=== PATIENT | female | born 1995 | race Caucasian/White ===

== ENCOUNTER 2022-10-12 15:36 | Outpatient (CLI) | payer OTHER, MEDICAID, SELFPAY ==
[2022-10-12] VITALS (7 sets, daily range): BP systolic 131–149; BP diastolic 87–104; PULSE 74–86; TEMP 37.4; BMI 42.2
[2022-10-12 16:37] LABS: Hematocrit 32.9 % (37-47); Hemoglobin 10.4 g/dL (12.0-15.0); Mean Corp Hgb Conc 31.6 g/dL (32-36); Mean Corpuscular Hgb 26.1 pg (27.0-32.0); Mean Corpuscular Volume 82.5 fL (81-99); Mean Platelet Vol. 11.2 fl (6.2-12.0); Platelet Count 264 K/mm3 (150-450); RBC Distribution Width SD 41.5 fl (35.1-43.9); Red Blood Count 3.99 M/mm3 (4.2-5.4); White Blood Count 12.5 K/mm3 (4.4-11.0)
[2022-10-12 17:27] LABS: AST(SGOT) 9 U/L (15-37); Alanine Aminotransfer ALT/SGPT 13 U/L (13-56); Creatinine, Serum 0.68 mg/dL (0.55-1.02); EST Glomerular Filtration Rate 111 mL/min (>60); Est Glom Filt Rate - Afr Amer 134 mL/min (>60); Estimated Creatinine Clearance 112.81 ml/min; Uric Acid 4.5 mg/dL (2.6-6.0)
[2022-10-12 17:29] LABS: Protein:Creat Ratio 433 mg/g CRE (0-200)
--- NOTE | 2022-10-14 12:52 | OB.TRI.NOTE ---
HPI - General General Date of Service: 10/12/22 Chief Complaint: elevated BPs in office HPI Narrative JAMEE GILBERT, is a 26 F @ 36.5 who presents for evaluation of elevated BPs. [facility] Medical History (Updated 10/14/22 @ 12:[address] Liz Metcalf MD) Gestational diabetes Home Medications 1 tab PO/SL DAILY 10/12/22 [History Last Taken 10/13/22 22:00] insulin NPH isoph U-100 human 16 units OTHER QHS gestational diabetes 10/12/22 [History Last Taken 10/13/22 22:00] Allergy/AdvReac Type Severity Reaction Status Date / Time No Known Allergies Allergy Verified 10/12/22 16:09 Surgical History (Updated 10/14/22 @ 10:31 by Farideh Gomes) History of surgery Social History Smoking Status: Light Smoker (<10/day) History Elective abortions Hx Para 0 Spontaneous abortions Hx # Term Pregnancies Ectopic pregnancies Hx # Pregnancies Multiple births # of living children NST FHR Rate Baby A Baseline: 140s Variability:: Moderate Accelerations:: 15 x 15 Decelerations:: None NST Reactive:: Yes FHR Category:: Category I Uterine Activity:: irregular Assessment & Plan (1) Breech presentation: (2) Gestational diabetes requiring insulin: (3) Pre-eclampsia affecting , antepartum: PLAN: Plan @ 36.5 weeks- Pre E- w/o severe features, GDMA2, breech 1) stable today- plan for dc home- will follow up in office tomorrow for CS schedule at 37 weeks 2) PRE LABS reviewed - elevated Prot/creat ratio 3) VS reviewed with nursing- stable for dc home no severe range bps.
== END 2022-10-12 18:00 | disposition home or self-care (01) ==
LOC: WPOUT 15:51 → WP 15:58
PROVIDERS: Visit Provider Obstetrics & Gynecology
DX: O24.414 Gestational diabetes mellitus in pregnancy, insulin controlled (principal); O99.333 Smoking (tobacco) complicating pregnancy, third trimester; O32.1XX0 Maternal care for breech presentation, not applicable or unspecified; F17.200 Nicotine dependence, unspecified, uncomplicated; Z3A.36 36 weeks gestation of pregnancy
CPT/HCPCS: 36415; 59025; 59050; 82565; 82570; 84156; 84450; 84460; 84550; 85027; 99221; G0378

== ENCOUNTER 2022-10-14 09:30 | Inpatient (IN) | payer OTHER, MEDICAID, SELFPAY ==
[2022-10-14] VITALS (20 sets, daily range): BP systolic 117–151; BP diastolic 76–105; PULSE 62–84; RESP 16–17; TEMP 36.1–36.7; O2SAT 95–100; BMI 41.8
[2022-10-14] MEDS: Lactated Ringers 1,000 ML 999 ML IV (10:00)
[2022-10-14 10:33] LABS: Absolute Lymphocyte Count 2.21 X10^3/uL (0.83-4.51); Absolute Neutrophil Count 7.8 X10^3/uL (2.0-7.7); Basophil# 0.05 X10^3/uL; Basophil% 0.4 % (0-1); Eosinophil# 0.15 X10^3/uL; Eosinophils% 1.3 % (0-5); Hematocrit 33.9 % (37-47); Hemoglobin 10.9 g/dL (12.0-15.0); Lymphocyte # 2.21 X10^3/ul (0.83-4.51); Lymphocyte % 19.7 % (19-41); Mean Corp Hgb Conc 32.2 g/dL (32-36); Mean Corpuscular Hgb 26.2 pg (27.0-32.0); Mean Corpuscular Volume 81.5 fL (81-99); Mean Platelet Vol. 11.2 fl (6.2-12.0); Monocyte% 7.1 % (0-10); NRBC Flagged by Analyzer 0 % (0-5); Neutrophil # 7.84 X10^3/uL (2.7-7.7); Neutrophil % 70.1 % (47-70); Platelet Count 274 K/mm3 (150-450); RBC Distribution Width CV 14.2 % (11.6-14.6); RBC Distribution Width SD 41.5 fl (35.1-43.9); Red Blood Count 4.16 M/mm3 (4.2-5.4); White Blood Count 11.2 K/mm3 (4.4-11.0)
[2022-10-14 10:47] LABS: Amphetamine Urine VISTA NEGATIVE (<1000 ng/mL); Barbiturate Urine VISTA NEGATIVE (< 200 ng/mL); Benzodiazepine Urine VISTA NEGATIVE (< 200 ng/mL); Cocaine Urine VISTA NEGATIVE (< 300 ng/mL); Ecstacy Urine VISTA NEGATIVE (< 500 ng/mL); Methadone Urine VISTA NEGATIVE (< 300 ng/mL); PCP Urine VISTA NEGATIVE (< 25 ng/mL); THC Urine VISTA POSITIVE (< 50 ng/mL); Vista UDS pH Range 6
[2022-10-14] MEDS: Acetaminophen 500 MG Tablet 1000 MG PO ×3 (10:47→23:46)
[2022-10-14 11:11] LABS: Bedside Glucose 68 mg/dL (74-106)
[2022-10-14] MEDS: Lactated Ringers 1,000 ML 150 ML IV (11:15)
[2022-10-14] MEDS: Sodium Citrate/Citric Acid 30 ML UDC PO (11:40)
--- NOTE | 2022-10-14 11:40 | PCM.HP.OB ---
HPI - General General Date of Admission: 10/14/22 HPI Narrative JAMEE GILBERT, is a 26 F who presents for . Maternal Data Information Final HOOD: 11/04/22 Gestational age: 37 weeks [facility] Medical History (Updated 10/14/22 @ 11:[address] Obie Johnson MD) Gestational diabetes Home Medications 1 tab PO/SL DAILY 10/12/22 [History Last Taken 10/13/22 22:00] insulin NPH isoph U-100 human 16 units OTHER HS gestational diabetes 10/12/22 [History Last Taken 10/13/22 22:00] Allergy/AdvReac Type Severity Reaction Status Date / Time No Known Allergies Allergy Verified 10/12/22 16:09 Surgical History (Updated 10/14/22 @ 10:31 by Farideh Gomes) History of surgery Social History Smoking Status: Light Smoker (<10/day) History Elective abortions Hx Para 0 Spontaneous abortions Hx # Term Pregnancies Ectopic pregnancies Hx # Pregnancies Multiple births # of living children Vital Signs Vital Signs Vital Signs: 10/14/22 10:09 10/14/22 10:09 10/14/22 10:38 Temperature Temperature Source Pulse Rate 81 Respiratory Rate Blood Pressure 133/76 H Blood Pressure Mean BP Systolic 133 BP Diastolic 76 Blood Pressure Source Blood Pressure Position Blood Pressure Location Pulse Ox 98 Oxygen Delivery Method 10/14/22 10:38 10/14/22 10:49 Temperature 98.1 F Temperature Source Temporal Pulse Rate 74 82 Respiratory Rate 16 Blood Pressure 133/76 H Blood Pressure Mean 95 BP Systolic BP Diastolic Blood Pressure Source Monitor Blood Pressure Position Semi-Fowlers Blood Pressure Location Right Arm Pulse Ox 98 Oxygen Delivery Method Room Air Weight Weight: 251 lb Body Mass Index (BMI) 41.8 Physical Exam Const alert and oriented x3 Chest inspection of chest normal GI soft to palpation, non-tender and non-distended Inspection: gravid external exam normal Extremity normal to inspection and no calf tenderness Labs Labs Labs: Blood Type O NEGATIVE Antibody Screen NEGATIVE Hct 33.9 % (37-47) L Hgb 10.9 g/dL (12.0-15.0) L Assessment & Plan (1) Pre-eclampsia affecting , antepartum: COMMENT: @37 weeks (2) Gestational diabetes requiring insulin: (3) Breech presentation: PLAN: Plan Discussed R/B/A and all questions answered. Patient will proceed with primary for breech and mild preeclampsia at 37 weeks. Informed consent signed in the office. Monitor BP's & PPBS per protocol.
--- NOTE | 2022-10-14 11:56 | EX.PCM.OBRPT ---
Maternal Data Information Final HOOD: 11/04/22 Gestational age: 37 weeks Details Operative Information Date of Procedure: 10/14/22 Pre-Operative Diagnosis: (1) Breech presentation (2) Mild preeclampsia (3) Gestational diabetes requiring insulin Post-Operative Diagnosis: Same Indications for : Breech Indications Narrative: The patient was taken to the operating room where spinal anesthesia was placed & found to be adequate. She was prepped and draped in the dorsal supine position with a leftward tilt. A Pfannenstiel skin incision was made approximately 2 cm above the symphysis pubis and carried through to the underlying fascia with the scalpel. The fascia was incised incised in the midline and extended laterally with the Fuentes scissors. The rectus muscles were in the midline and the peritoneum was entered carefully and bluntly. The peritoneal incision was stretched and the bladder blade was inserted. Vesicouterine peritoneum was tented up, incised & then bladder flap created gently. The uterine incision was made in a low transverse fashion with the scalpel and extended superiorly and inferiorly with blunt dissection. The 's buttocks were grasped and the was delivered carefully via typical breech maneuvers. The 3VC cord was clamped and cut in delayed fashion. The was handed off to the waiting pediatric physical therapy assistant. The placenta was delivered with fundal massage and gentle traction in the standard fashion. The uterus was exteriorized and cleared of clots and debris. The uterine incision was closed with #1 Vicryl suture in a running locked fashion. Monocryl suture was used in an imbricating fashion. The incision was examined and was found to be hemostatic. The uterus was returned to the abdominal cavity. After irrigating Talib was placed over the uterine incision as some areas were denuded (but hemostatic). The peritoneum was closed with vicryl suture in running fashion The rectus muscle was examined and any bleeding was Bovie cauterized. The fascia was closed with PDS suture in a running standard fashion. The subcutaneous tissue was examining and any bleeding was Bovie cauterized. The subcutaneous tissue was reapproximated with interrupted sutures. The skin was closed in a subcuticular fashion. All sponge, lap, and needle counts were correct. The patient was taken to her room for recovery in a stable condition. Classification: Scheduled Procedure Type: low transverse trim operator #1: Liz Metcalf Type of Anesthesia: Spinal Antibiotic Given: Ancef 2 grams IV x1 Drain: Bardales to straight drain Estimated Blood Loss: 750ml Fluids Replaced: 1,000ml Procedure Start Time: 12:22 Procedure Stop Time: 13:00 Findings Description of Procedure: Normal maternal uterus and adnexa Presentation: Positive for Issa Breech Amniotic Membrane Rupture Type: Artificial Amniotic Fluid Description: Clear Placental Delivery Description: Expressed Placenta Disposition: [facility] Specimen(s) Sent to Pathology: None Cord Vessel Description: 3 Vessels Cord Entanglement: None A Gender: Female (Selah, weight = 3060g) (1 minute): 8 (5 minute): 9 Delayed Cord Clamping: Yes Complications Complications: None
[2022-10-14] MEDS: Ketorolac 30 MG/ML Syringe IV ×2 (13:35→19:34)
[2022-10-14 15:01] LABS: Bedside Glucose 76 mg/dL (74-106)
[2022-10-14] MEDS: NIFEdipine 30 MG Tablet PO (18:15)
[2022-10-15] VITALS (8 sets, daily range): BP systolic 126–142; BP diastolic 83–99; PULSE 79–108; RESP 16–18; TEMP 36.7–36.9; O2SAT 96–98
[2022-10-15] MEDS: Enoxaparin 40 MG/0.4 ML Syringe SC ×3 (00:33→22:41)
[2022-10-15] MEDS: Ketorolac 30 MG/ML Syringe IV ×2 (01:34→08:10)
[2022-10-15] MEDS: 0.9% Saline Lock 10 ML Syringe IV ×2 (01:35→08:11)
[2022-10-15] MEDS: Acetaminophen 500 MG Tablet 1000 MG PO ×3 (06:01→17:46)
[2022-10-15 06:12] LABS: Hematocrit 30.4 % (37-47); Hemoglobin 9.6 g/dL (12.0-15.0); Mean Corp Hgb Conc 31.6 g/dL (32-36); Mean Corpuscular Hgb 25.8 pg (27.0-32.0); Mean Corpuscular Volume 81.7 fL (81-99); Mean Platelet Vol. 10.7 fl (6.2-12.0); Platelet Count 229 K/mm3 (150-450); RBC Distribution Width CV 14.3 % (11.6-14.6); RBC Distribution Width SD 41.5 fl (35.1-43.9); Red Blood Count 3.72 M/mm3 (4.2-5.4); White Blood Count 16.8 K/mm3 (4.4-11.0)
[2022-10-15 06:25] LABS: Bedside Glucose 84 mg/dL (74-106)
[2022-10-15] MEDS: NIFEdipine 30 MG Tablet PO (08:37)
[2022-10-15] MEDS: Senna/Docusate Sodium 1 Tablet PO (08:38)
--- NOTE | 2022-10-15 09:38 | NURSING ---
Mother initiated pumping, 21mm flange inserts given, explained pumping schedule and importance of pumping 8-10x per day. mother reports is important to her and would like to be successful but is feel discouraged. Support and information given. Also discussed THC use and risks to baby if mother continued while , reports she would rather breastfeed and not use thc and understands information well.
[2022-10-15] MEDS: oxyCODONE 5 MG Tablet PO ×2 (12:30→17:47)
[2022-10-15] MEDS: Ibuprofen 600 MG Tablet PO ×2 (14:44→20:50)
--- NOTE | 2022-10-15 17:20 | CASEMGMT ---
Social Work Assessment Labor and Delivery Unit Patient Address: [address] [place] [address] Phone number: [phone] Date of Referral: 10/14/2022 Time of Referral: 1131 Referred By: Dr. Obie Johnson Date of Intervention: 10/15/2022 Time of Intervention: Approximately [id number] Reason for Referral: Maternal history of THC use History obtained from: Medical records and mother of baby (MOB) Jason Pedro; father of baby (FOB) Jorge A Smith present for part of conversation. Household composition: MOB, FOB and plan for baby girl to reside in this home as well. Has resided in this home since May 2022. Patient's parent/guardian status: HANK is a 26-year-old single female, involved with the FOB who is 28 years old for the last 9 years. During private conversation with the MOB, MOB denied any type of domestic violence or intimate partner violence. [place] baby girl, Leyda Smith (10/14/2022) is the first child for both parents. Medical History: HANK is 1, para 0 now 1 after delivering Leyda. care started at 7 weeks gestation and regular thereafter. Medical record indicates MOB with a mild preeclampsia and gestational diabetes. Noted in care record MOB indicating that it was overwhelming at times to keep track of blood sugars. delivered at 37 weeks gestation via section. weight 3060 g. Apgars 8 and 9 at 1 and 5 minutes of life respectively. Infant has been transferred into the [facility] special care nursery for issues related to hypoglycemia. Educational Status: HANK has graduated high school. No reported issues with reading, writing, or learning. Financial Status: HANK has not worked since August but last employment was at [employer]. Plans to return to work when able. FOB work is had a [employer], 12-hour shifts and full-time. Infant Supplies: MOB and FOB reported to have necessary supplies for the including bassinet, crib, car seat, clothing, diapers and wipes. MOB is hoping to provide breastmilk to the baby. Childcare/Caregiver(s): MOB will be the primary caregiver, along with help from the FOB. Transportation: MOB has a wood pile driver operator's license and a vehicle. FOB does not drive. HANK's hyzfrg-sb-siz can assist with transportation when needed. Programs/Agencies Involved: No current agency involvement. MOB agrees to apply for Medicaid, food assistance, and WIC. Verbally agrees to help me grow referral. Children Services/Legal Issues: HANK denies any legal history. No children services involvement. Behavioral Health Issues: Mental Health History: HANK reports history of some depression anxiety, though never treated or officially diagnosed. Denies depression or anxiety ever disrupting daily life. Denies any history of suicidal or homicidal ideation. Reports as a teenager may have had some fleeting thoughts about wanting to , but no active planning/intent/action. [place] depression screen is a score of 7, completed on 10/15/2022. Substance Use History: HANK has history of marijuana use, and admits to usage prior to . During continue to use but reduced use from daily down to weekly. MOB reports use during was related to nausea and appetite. MOB denies any alcohol during , and alcohol outside of and social. Denies any history of heroin, meth, cocaine or other illicit substance use. Denies tobacco use. Family History: HANK reports her mother had a history of bipolar disorder; history of substance use though not current. HANK's father has a history of alcohol use issues. Drug Screens: Maternal drug screen positive on 10/14/2022. 's urine drug screen is negative and meconium is pending. FOB history: BENJAMIN admits to marijuana usage, and has been using for assistance with appetite and sleep. BENJAMIN's mother reportedly has history of borderline personality disorder. Family/Social Stressors: Unplanned but accepted . MOB and FOB report they were living in a very nice duplex, but there was a change of her landlord and were given 30 days to vacate. MOB and FOB have now been in their new living arrangement since May. HANK reports the home is old and not really where they want to be permanently. HANK was gestational diabetes during , which was another stress to manage. HANK has not been able to work since August. Finances are limited and at times stressful. MOB and FOB report HANK's insurance could end at any time due to MOB leaving employment . It is reported the employer is slow at getting around to submitting changes in employment/insurance status. Support Systems: HANK's [id number] is reported as a support. MOB's mother is a support although does not live locally. FOB reports his Monica would be a support if the family would reach out. Depression/Shaken Baby/Safe Sleeping: Reviewed safe sleeping with parents, as well as shaken baby prevention. Reviewed mood and anxiety disorders, risk factors including risk for psychosis as a relates to bipolar history in the maternal side of the family. ASSESSMENT: Met with MOB and FOB and MOB's room, introducing to self and social work role. Educated that this marketing copywriter is the social media assistant for the [facility] labor and delivery unit, and for continuity of care of families admitted to the special care nursery nursery also provide social work services to the special care nursery. MOB and FOB cooperative, pleasant, and engaging in conversation. Near end of the conversation FOB left the room at this marketing copywriter's request so this marketing copywriter could complete [place] depression screen (where this marketing copywriter did also address the topic of domestic violence). During conversation together, the MOB and FOB appeared relaxed and comfortable with each other, with open communication including topic of marijuana use. FOB appeared more spontaneous and open about historical use of marijuana for himself and the MOB. This marketing copywriter addressed with both parents the Pre[place] Act, and requirements to report substance exposed infants to children services. Allowed parents opportunity to ask questions and process this information. Parents asked appropriate questions, and MOB appropriately tearful. Emotional support and encouragement provided, and educated that typically children services intention is to keep the family unit together. Educated that if children services decides to open a case for investigation agency may be asking parents to go for drug and alcohol assessments and wanting to get parents engaged in other services. Parents do report that while their current housing situation is a stressor, it is a stable place to reside at this point. Report to have needed supplies to care for baby. Educated parents to [facility], and encouraged parents to get on this waiting list as well as talk to agency about potential list of open apartments in the [facility] area. MOB voiced thought that she may follow-up with this suggestion. Educated to Medicaid, food assistance, and WIC as potential services which may assist this family and offset some of the financial stress they are feeling. Parents educated to both help me grow and early [employer] services, and agreement was made for help me grow referral. Safe Plan of Care for infant related to substance use: MOB reports current plan is to abstain from THC use. Reports understanding that breast-feeding and is not recommended if MOB were to use THC again. FOB also has history of THC use. Parents agreed to that if THC were to be present in the future, this would be locked up and put away from the child. Use and smoking would be outside. This marketing copywriter encouraged that there would always be at least 1 parent for adults, who is sober to care for her child. At this time parents declined any type of referrals for counseling or assessment as it relates to substance use. PLAN: MOB will discharge home when ready. Social work will follow-up with providing community resource information, Medicaid application, information on mood and anxiety disorders. Help me grow referral also to be made. Social work will be following this family while the infant remains in the special care nursery. Referral to [facility] services pending, and MOB/FOB aware. -TANNER Wilkinson, TERRY *This note was generated with picsellation software. It may contain incorrect words, spelling, and punctuation that were not noted in review of the chart prior to signing*
--- NOTE | 2022-10-15 20:41 | PCM.PN.OB ---
Subjective Subjective Doing well per patient and nursing staff. Ambulating and taking PO without difficulty. Voiding and passing flatus. Pain controlled. , services for assistance. Denies headache, visual changes, chest pain, shortness of breath, leg pain or increased bleeding. Lochia normal. Objective Data Objective Data Vital Signs: Vital Signs Temp Pulse Resp BP Pulse Ox O2 Del Method 98.5 F 91 16 126/88 H 97 Room Air 10/15/22 17:41 10/15/22 17:41 10/15/22 17:41 10/15/22 17:41 10/15/22 17:41 10/15/22 17:41 Oxygen Delivery Method Room Air Weight: 251 lb Body Mass Index (BMI) 41.8 Intake & Output: Intake and Output for Last 24 Hours 10/13/22 10/14/22 10/15/22 23:59 23:59 23:59 Intake Total 2200 / 2200 Output Total 350 / 350 1250 / 1250 Balance 1850 / 1850 -1250 / -1250 Lab / Micro Data Result Diagrams: 10/15/22 05:55 Labs: Laboratory Results - last 24 hr 10/15/22 05:55: WBC 16.8 H, RBC 3.72 L, Hgb 9.6 L, Hct 30.4 L, MCV 81.7, MCH 25.8 L, MCHC 31.6 L, RDW Std Deviation 41.5, RDW Coeff of Aries 14.3, Plt Count 229, MPV 10.7 10/15/22 05:57: POC Glucose 84 ROS Constitutional Constitutional: Reports systems reviewed and no addt'l complaints, except as documented; Denies headache(s) Eyes Eyes: Denies acute decrease in peripheral vision, blurry vision or change in vision ENT HEENT: Reports systems reviewed and no addt'l complaints, except as documented Cardiovascular Cardiovascular: Denies chest pain or dizziness Respiratory/Chest Respiratory/Chest: Denies cough, dyspnea, dyspnea on exertion, shortness of breath at rest or shortness of breath with exertion Gastrointestinal Gastrointestinal: Denies abdominal pain, diarrhea, nausea or vomiting Genitourinary Genitourinary: Denies abdominal discomfort Musculoskeletal Musculoskeletal: Denies limited range of motion Integumentary Integumentary: Reports systems reviewed and no addt'l complaints, except as documented Neurologic Neurologic: Reports systems reviewed and no addt'l complaints, except as documented Psychiatric Psychiatric: Reports systems reviewed and no addt'l complaints, except as documented Endocrine Endocrinology: Reports systems reviewed and no addt'l complaints, except as documented Hematologic/Lymphatic Hematologic/Lymphatic: Reports systems reviewed and no addt'l complaints, except as documented Allergic/Immunologic Allergic/Immunologic: Reports systems reviewed and no addt'l complaints, except as documented Physical Exam Const alert and oriented x3 General Appearance: cooperative Orientation / Consciousness: awake, oriented to person, oriented to place and oriented to time Exam Limitations: no limitations HEENT normocephalic Head and Scalp: normal to inspection, normocephalic and atraumatic Face and Sinus: normal facial exam Eyes General Eye: normal appearance of both eyes Neck full ROM Chest Chest: symmetrical chest wall rise Resp normal respiratory effort and normal air movement Auscultation: clear to auscultation bilaterally Cardio regular rate, regular rhythm, S1 normal heart sound, S2 normal heart sound, no murmurs, no rub, no gallops and no clicks GI non-tender GI Narrative: Dressing dry and intact Auscultation: hypoactive bowel sounds appearance of the vagina normal Bladder / Kidney Exam: no CVA tenderness Back/Spine normal ROM Extremity normal to inspection and full ROM Skin no rashes or lesions noted Neuro oriented x3, CN's II-XII intact bilaterally and moves all extremities Sensorium / Orientation: awake, alert and oriented to person Motor Exam: clonus absent Deep Tendon Reflexes: Rt Patellar (L4): 2+ and Lt Patellar (L4): 2+ Assessment & Plan (1) Breech presentation: (2) Gestational diabetes requiring insulin: (3) Pre-eclampsia affecting , antepartum: PLAN: Plan 1) Routine PP care 2) Vitals stable 3) I&O 4) Hgb 9.6, asymptomatic, CBC in am 5) Pain management 6) Planning D/C home tomorrow
[2022-10-16] MEDS: Acetaminophen 500 MG Tablet 1000 MG PO ×4 (00:24→19:33)
[2022-10-16] MEDS: oxyCODONE 5 MG Tablet PO (00:25)
[2022-10-16] MEDS: Ibuprofen 600 MG Tablet PO ×4 (02:43→21:00)
[2022-10-16 02:44] VITALS: BP 136/86; PULSE 79; RESP 18; TEMP 36.8; O2SAT 96
[2022-10-16 05:43] LABS: Absolute Lymphocyte Count 2.66 X10^3/uL (0.83-4.51); Absolute Neutrophil Count 7.7 X10^3/uL (2.0-7.7); Basophil# 0.04 X10^3/uL; Basophil% 0.3 % (0-1); Eosinophil# 0.23 X10^3/uL; Hemoglobin 8.7 g/dL (12.0-15.0); Lymphocyte # 2.66 X10^3/ul (0.83-4.51); Lymphocyte % 23.3 % (19-41); Mean Corp Hgb Conc 31.1 g/dL (32-36); Mean Corpuscular Hgb 25.8 pg (27.0-32.0); Mean Corpuscular Volume 83.1 fL (81-99); Mean Platelet Vol. 10.6 fl (6.2-12.0); Monocyte# 0.72 X10^3/uL; Monocyte% 6.3 % (0-10); NRBC Flagged by Analyzer 0 % (0-5); Neutrophil # 7.68 X10^3/uL (2.7-7.7); Neutrophil % 67.2 % (47-70); Platelet Count 241 K/mm3 (150-450); RBC Distribution Width CV 14.6 % (11.6-14.6); Red Blood Count 3.37 M/mm3 (4.2-5.4); White Blood Count 11.4 K/mm3 (4.4-11.0)
[2022-10-16 08:30] VITALS: BP 128/90; PULSE 78; RESP 12; TEMP 36.3; O2SAT 98
[2022-10-16] MEDS: Senna/Docusate Sodium 1 Tablet PO (08:43)
[2022-10-16] MEDS: NIFEdipine 30 MG Tablet PO (10:57)
[2022-10-16] MEDS: Enoxaparin 40 MG/0.4 ML Syringe SC ×2 (10:57→23:10)
--- NOTE | 2022-10-16 11:46 | PCM.PN.OB ---
Subjective Subjective Doing well per patient and nursing staff. Ambulating and taking PO without difficulty. Voiding and passing flatus. Pain controlled. , services for assistance. Denies headache, visual changes, chest pain, shortness of breath, leg pain or increased bleeding. Lochia normal. Baby in special care nursery for low blood sugar. Objective Data Objective Data Vital Signs: Vital Signs Temp Pulse Resp BP Pulse Ox O2 Del Method 97.3 F L 78 12 128/90 H 98 Room Air 10/16/22 08:30 10/16/22 08:30 10/16/22 08:30 10/16/22 08:30 10/16/22 08:30 10/16/22 08:30 Oxygen Delivery Method Room Air Weight: 251 lb Body Mass Index (BMI) 41.8 Intake & Output: Intake and Output for Last 24 Hours 10/14/22 10/15/22 10/16/22 23:59 23:59 23:59 Intake Total 2200 / 2200 Output Total 350 / 350 1250 / 1250 Balance 1850 / 1850 -1250 / -1250 Lab / Micro Data Result Diagrams: 10/16/22 05:15 Labs: Laboratory Results - last 24 hr 10/16/22 05:15: WBC 11.4 H, RBC 3.37 L, Hgb 8.7 L, Hct 28.0 L, MCV 83.1, MCH 25.8 L, MCHC 31.1 L, RDW Std Deviation 44.0 H, RDW Coeff of Aries 14.6, Plt Count 241, MPV 10.6, Immature Gran % (Auto) 0.900, Neut % (Auto) 67.2, Lymph % (Auto) 23.3, [place] % (Auto) 6.3, Eos % (Auto) 2.0, Baso % (Auto) 0.3, Absolute Neuts (auto) 7.7, Absolute Lymphs (auto) 2.66, Nucleated RBC % 0 ROS Constitutional Constitutional: Reports systems reviewed and no addt'l complaints, except as documented; Denies headache(s) Eyes Eyes: Denies acute decrease in peripheral vision, blurry vision or change in vision ENT HEENT: Reports systems reviewed and no addt'l complaints, except as documented Cardiovascular Cardiovascular: Denies chest pain or dizziness Respiratory/Chest Respiratory/Chest: Denies cough, dyspnea, dyspnea on exertion, shortness of breath at rest or shortness of breath with exertion Gastrointestinal Gastrointestinal: Denies abdominal pain, diarrhea, nausea or vomiting Genitourinary Genitourinary: Denies abdominal discomfort Musculoskeletal Musculoskeletal: Denies limited range of motion Integumentary Integumentary: Reports systems reviewed and no addt'l complaints, except as documented Neurologic Neurologic: Reports systems reviewed and no addt'l complaints, except as documented Psychiatric Psychiatric: Reports systems reviewed and no addt'l complaints, except as documented Endocrine Endocrinology: Reports systems reviewed and no addt'l complaints, except as documented Hematologic/Lymphatic Hematologic/Lymphatic: Reports systems reviewed and no addt'l complaints, except as documented Allergic/Immunologic Allergic/Immunologic: Reports systems reviewed and no addt'l complaints, except as documented Physical Exam Const alert and oriented x3 General Appearance: cooperative Orientation / Consciousness: awake, oriented to person, oriented to place and oriented to time Exam Limitations: no limitations HEENT normocephalic Head and Scalp: normal to inspection, normocephalic and atraumatic Face and Sinus: normal facial exam Eyes General Eye: normal appearance of both eyes Neck full ROM Chest Chest: symmetrical chest wall rise Resp normal respiratory effort and normal air movement Auscultation: clear to auscultation bilaterally Cardio regular rate, regular rhythm, S1 normal heart sound, S2 normal heart sound, no murmurs, no rub, no gallops and no clicks GI normal to inspection, nondistended, normoactive bowel sounds and non-tender GI Narrative: dressing dry and intact. Small amount of old blood. Slight pink area above dressing, no warmth appearance of the vagina normal Bladder / Kidney Exam: no CVA tenderness Back/Spine normal ROM Extremity normal to inspection and full ROM Skin no rashes or lesions noted Neuro oriented x3, CN's II-XII intact bilaterally and moves all extremities Sensorium / Orientation: awake, alert and oriented to person Motor Exam: clonus absent Deep Tendon Reflexes: Rt Patellar (L4): 2+ and Lt Patellar (L4): 2+ Assessment & Plan (1) Acute blood loss anemia: COMMENT: IV iron given on 10/16/22, Hgb 9.6 post surgical down to 8.7 D/C home POD#3 PLAN: Plan 1) Routine Postoperative care 2) Vitals stable 3) I&O 4) Pain management 5) Hgb 9.6 to 8.7, will give IV iron sucrose x1 with Benadryl 25mg IV 6) Planning D/C tomorrow home or hotel status. 7) Dressing with no signs of infection, possible sensitivity to surgical drap or dressing. Will continue to monitor at this time.
[2022-10-16 13:15] VITALS: BP 129/83; PULSE 71; RESP 16; TEMP 36.6; O2SAT 98
[2022-10-16 15:29] VITALS: BP 122/85; PULSE 74; RESP 16; TEMP 36.8; O2SAT 99
[2022-10-16] MEDS: DiphenhydrAMINE 50 MG/ML Syringe 25 MG IV (15:30)
[2022-10-16] MEDS: 0.9% Saline Lock 10 ML Syringe IV ×2 (15:30→15:35)
--- NOTE | 2022-10-16 16:00 | NURSING ---
1315- noted redness to panis area as before, however noted to be clear across upper edge of tape. cherelle arias in room assessing pt.
[2022-10-16 21:49] VITALS: BP 137/92; PULSE 91; RESP 16; TEMP 36.6; O2SAT 97
[2022-10-17] MEDS: Acetaminophen 500 MG Tablet 1000 MG PO ×4 (01:44→21:03)
[2022-10-17 01:45] VITALS: BP 124/85; PULSE 72; RESP 17; TEMP 36.7
[2022-10-17] MEDS: oxyCODONE 5 MG Tablet PO (03:05)
[2022-10-17] MEDS: Ibuprofen 600 MG Tablet PO ×4 (03:05→22:47)
[2022-10-17 07:09] LABS: Absolute Lymphocyte Count 0.99 X10^3/uL (0.83-4.51); Absolute Neutrophil Count 5.3 X10^3/uL (2.0-7.7); Basophil# 0.03 X10^3/uL; Basophil% 0.4 % (0-1); Eosinophil# 0.27 X10^3/uL; Eosinophils% 3.7 % (0-5); Hematocrit 29.5 % (37-47); Lymphocyte # 0.99 X10^3/ul (0.83-4.51); Lymphocyte % 13.5 % (19-41); Mean Corp Hgb Conc 30.5 g/dL (32-36); Mean Corpuscular Hgb 25.6 pg (27.0-32.0); Mean Corpuscular Volume 83.8 fL (81-99); Monocyte# 0.55 X10^3/uL; Monocyte% 7.5 % (0-10); NRBC Flagged by Analyzer 0 % (0-5); Neutrophil # 5.25 X10^3/uL (2.7-7.7); Neutrophil % 71.9 % (47-70); Platelet Count 264 K/mm3 (150-450); RBC Distribution Width CV 14.9 % (11.6-14.6); RBC Distribution Width SD 44.8 fl (35.1-43.9); Red Blood Count 3.52 M/mm3 (4.2-5.4); White Blood Count 7.3 K/mm3 (4.4-11.0)
[2022-10-17 08:30] VITALS: BP 144/98; PULSE 83; RESP 16; TEMP 36.2; O2SAT 99
--- NOTE | 2022-10-17 08:39 | PCM.PN.OB ---
Subjective Subjective Pain well controlled. Average lochia. Denies headache or visual changes. Able to ambulate without getting lightheaded. Passing flatus, urinating without difficulty. Has had a bowel movement Objective Data Objective Data Vital Signs: Vital Signs Temp Pulse Resp BP Pulse Ox O2 Del Method 98.0 F 72 17 124/85 H 97 Room Air 10/17/22 01:45 10/17/22 01:45 10/17/22 01:45 10/17/22 01:45 10/16/22 21:49 10/16/22 21:49 Oxygen Delivery Method Room Air Weight: 113.852 kg Body Mass Index (BMI) 41.8 Intake & Output: Intake and Output for Last 24 Hours 10/15/22 10/16/22 10/17/22 23:59 23:59 23:59 Intake Total 110 / 110 Output Total 1250 / 1250 Balance -1250 / -1250 110 / 110 Lab / Micro Data Result Diagrams: 10/17/22 06:56 Labs: Laboratory Results - last 24 hr 10/17/22 06:56: WBC 7.3, RBC 3.52 L, Hgb 9.0 L, Hct 29.5 L, MCV 83.8, MCH 25.6 L, MCHC 30.5 L, RDW Std Deviation 44.8 H, RDW Coeff of Aries 14.9 H, Plt Count 264, MPV 10.0, Immature Gran % (Auto) 3.000 H, Neut % (Auto) 71.9 H, Lymph % (Auto) 13.5 L, [place]herty % (Auto) 7.5, Eos % (Auto) 3.7, Baso % (Auto) 0.4, Absolute Neuts (auto) 5.3, Absolute Lymphs (auto) 0.99, Nucleated RBC % 0 Physical Exam Narrative Extremity 2+ edema, no clonus, 2+ DTRs Const alert General Appearance: cooperative GI GI Narrative: soft, moderate distention, fundus firm, appropriately tender. Abdominal bandage clean dry and intact Assessment & Plan (1) delivery delivered: PLAN: Postoperative day #3 status post primary section for breech and preeclampsia. Blood pressures are improved, currently on labetalol and Procardia. Continue current regimen. Working on breast-feeding. is still in special care nursery. Recommend patient stay today to make sure that her blood pressures are stable since we had to increase her antihypertensives yesterday. Patient had chronic antepartum anemia with acute blood loss anemia. The drop in her hemoglobin postoperative was appropriate for surgery and not indicative of a hemorrhage. Hemoglobin is stable. Will discharge home with an iron prescription with her other meds.
[2022-10-17] MEDS: Senna/Docusate Sodium 1 Tablet PO (08:55)
[2022-10-17] MEDS: NIFEdipine 30 MG Tablet PO (09:05)
[2022-10-17] MEDS: Enoxaparin 40 MG/0.4 ML Syringe SC ×2 (10:58→22:47)
[2022-10-17 11:02] VITALS: BP 128/89; PULSE 93; RESP 16; O2SAT 97
[2022-10-17 16:00] VITALS: BP 127/87; PULSE 75; RESP 18; TEMP 36.2
[2022-10-17 19:30] VITALS: BP 143/96; PULSE 83; RESP 16; TEMP 36.8; O2SAT 97
[2022-10-17 19:40] VITALS: BP 129/87
[2022-10-18] VITALS (8 sets, daily range): BP systolic 126–153; BP diastolic 91–104; PULSE 71–83; RESP 16–18; TEMP 36.1–37.1; O2SAT 97–98
[2022-10-18] MEDS: Acetaminophen 500 MG Tablet 1000 MG PO ×4 (02:57→21:07)
[2022-10-18] MEDS: Ibuprofen 600 MG Tablet PO ×3 (05:07→17:21)
--- NOTE | 2022-10-18 09:36 | NURSING ---
Small reddened area noted to left side of incision. Provider in room with exam and states it looks like it is improving from prior assessments.
--- NOTE | 2022-10-18 09:38 | NURSING ---
Xiomara in room with morning vital signs and aware of BP. Will discuss with Dr. Johnson and call nurse with further orders.
[2022-10-18] MEDS: Senna/Docusate Sodium 1 Tablet PO (10:47)
[2022-10-18] MEDS: NIFEdipine 60 MG Tablet PO (10:47)
--- NOTE | 2022-10-18 15:35 | NURSING ---
Xiomara on floor and made aware of pt blood pressures. Plan is to get another BP after dinnertime and decide on discharge.
--- NOTE | 2022-10-18 16:40 | PCM.DC.SUM ---
Providers Date of Admission: 10/14/22 Reason For Visit: PRIMARY C SECTION Diagnosis Discharge Diagnosis (1) delivery delivered: Status: Acute Code(s): O82 - Encounter for delivery without indication Plan 1) Routine Postoperative care 2) Vitals stable 3) I&O 4) Pain management 5) Hgb 9.6 to 8.7, will give IV iron sucrose x1 with Benadryl 25mg IV 6) Planning D/C tomorrow home or hotel status. 7) Dressing with no signs of infection, possible sensitivity to surgical drap or dressing. Will continue to monitor at this time. Medications at Discharge Home Medications 1 tab PO/SL DAILY 10/12/22 insulin NPH isoph U-100 human 16 units OTHER QHS gestational diabetes 10/12/22 acetaminophen 500 mg tablet 1,000 mg PO Q6H #0 tabs 10/18/22 ibuprofen 600 mg tablet 600 mg PO Q6H #0 tabs 10/18/22 labetalol 200 mg tablet 200 mg PO TID #60 tabs 10/18/22 nifedipine 60 mg tablet,extended release 24 hr (Procardia XL) 60 mg PO DAILY #30 tabs 10/18/22 oxycodone 5 mg tablet 5 mg PO Q4H PRN PRN Pain Score 4-10 7 days #10 tabs 10/18/22 Hospital Course Summary of Care Provided Hospital Course: Presented for section on 10/14/22 by due to Preeclampsia without severe features. Acute anemia treated with IV iron. Discharge on POD #3 Weight / BMI Weight Weight: 251 lb Body Mass Index (BMI) 41.8 ABG / Lab / Microbiology Data Result Diagrams: 10/17/22 06:56 Meaningful Use Info Meaningful Use Diagnoses (Choose all that apply): None applicable Discharge Plan Admission Admit Date/Time: 10/14/22 09:30 Primary Reason for Your Visit: section Attending Provider: Obie Johnson Instructions Patient Instructions: After a Discharge Orders/Prescriptions Prescriptions: New acetaminophen 500 mg Tablet 1,000 mg PO Q6H Qty: 0 0RF ibuprofen 600 mg Tablet 600 mg PO Q6H Qty: 0 0RF oxycodone 5 mg Tablet 5 mg PO Q4H PRN PRN (Reason: Pain Score 4-10) 7 Days Qty: 10 0RF labetalol 200 mg tablet 200 mg PO TID Qty: 60 0RF nifedipine [Procardia XL] 60 mg tablet extended release 24hr 60 mg PO DAILY Qty: 30 0RF Continued 1 tab PO/SL DAILY No Action insulin NPH isoph U-100 human 16 units OTHER QHS Referrals / Follow Up: Obie Johnson MD [Med Staff - Active Staff] - (Follow up Monday with for BP check and 6 week PP visit) Disposition Disposition (needs filled in before D/C Order can be placed): Home, Self Care
[2022-10-18] MEDS: Labetalol 200 MG Tablet PO (17:22)
== END 2022-10-18 22:40 | disposition home or self-care (01) | DRG 787 ==
PROVIDERS: Advanced Practice Midwife; Admitting Provider Obstetrics & Gynecology; Referring Provider Obstetrics & Gynecology; Visit Provider Obstetrics & Gynecology
PROC: 10D00Z1 Extraction of Products of Conception, Low, Open Approach (ICD-10-PCS; CPT 59514; principal; 2022-10-14 11:45)
DX: O32.1XX0 Maternal care for breech presentation, not applicable or unspecified (principal); D62 Acute posthemorrhagic anemia; O14.94 Unspecified pre-eclampsia, complicating childbirth; O24.414 Gestational diabetes mellitus in pregnancy, insulin controlled; F17.200 Nicotine dependence, unspecified, uncomplicated; O24.424 Gestational diabetes mellitus in childbirth, insulin controlled; O99.334 Smoking (tobacco) complicating childbirth; O90.81 Anemia of the puerperium; Z37.0 Single live birth; Z3A.37 37 weeks gestation of pregnancy
CPT/HCPCS: 36415; 59025; 59050; 80307; 82565; 82570; 82962; 84156; 84450; 84460; 84550; 85025; 85027; 86850; 86900; 86901; 99221; 99406; J1756; J7120; A4216; G0378; J2405